=== PATIENT | male | born 2000 | race Caucasian/White ===

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

== ENCOUNTER → 2022-01-29 | Outpatient (CLI) | payer OTHER ==
[~2022-01-29] MED LIST changes: +CLAR10CA3 PO
== END ==
LOC: M CARPUL 10:48
PROVIDERS: ATTEND Family Medicine
DX: R06.02 Shortness of breath (principal)